=== PATIENT | female | born 1965 | race Caucasian/White ===

== ENCOUNTER 2018-04-21 07:27 | Emergency (ER) ==
[2018-04-21 07:39] VITALS: TEMP 97.2; BMI 31.6
[2018-04-21] MEDS ORDERED: TORADOL IM STA (07:46)
--- NOTE | 2018-04-21 08:47 | CT ---
EXAM: CT Abdomen without contrast. CT Pelvis without contrast. HISTORY: Left flank pain. Left groin pain. Hematuria. COMPARISON: None available. TECHNIQUE: Multiple axial images of the abdomen and pelvis were obtained without intravenous contras t. Images were reformatted in the sagittal and coronal plane. FINDINGS: Please note that evaluation of the abdominal and pelvic structures is limited due to lack of intravenous contrast. Probable right middle lobe and lingular scarring with additional subsegmental atelectasis in the righ t lower lobe. Degenerative changes present throughout the spine. The liver is mildly enlarged but normal contour. Gallbladder is contracted. The pancreas, spleen, a nd adrenal glands demonstrate normal contour. Right kidney appears normal. Mild left renal pelviectasis and ureterectasis noted with suspected pun ctate proximal left ureteral calculus on axial image 78 and coronal image 54 of the L4-5 level. No m ore distal left ureteral calculi are seen. No bladder calculi identified. Bladder appears normal. Uterus is absent. The bowel is normal in course and caliber without evidence for obstruction or inflammatory process. The appendix is normal. No free fluid or free air identified. Nonspecific nonenlarged lymph nodes a re present mesenteric, retroperitoneal, iliac chains and inguinal regions. Atherosclerotic calcifica tions are present with relatively small caliber of the distal infrarenal abdominal aorta just above t he bifurcation measuring approximately 1.4 cm transverse by 1.2 cm AP. IMPRESSION: 1. Mild left hydronephrosis secondary to a punctate obstructing calculus in the proximal left ureter located at the L4-5 level. 2. Hepatomegaly. 3. Atherosclerosis.
--- NOTE | 2018-04-21 09:41 | ED.PDOC ---
General ED Provider: Dr. KIM GUZMAN Chief Complaint: Kidney Stone Stated Complaint: left flank /LLQ PAIN Time Seen by Physician: 07:30 (SEEN WITH NURSE AT ALL TIME HAS HISTORY OF RENAL STONES WITH THE SAME PATTERN PAIN) Mode of Arrival: Walk-In Information Source: Patient Exam Limitations: No limitations Primary Care Provider: MIAN COMER Nursing and Triage Documentation Reviewed and Agree: Yes Does patient meet sepsis criteria?: No System Inflammatory Response Syndrome: Not Applicable Sepsis Protocol: For patient's 13 years and over: Temp is 96.8 and below OR 101 and greater Pulse >90 BPM Resp >20/minute Acutely Altered Mental Status Are patient's symptoms suggestive of a new infection, such as: -Pneumonia -Skin, Soft Tissue -Endocarditis -UTI -Bone, Joint Infection -Implantable Device -Acute Abdominal Infection -Wound Infection -Meningitis -Blood Stream Catheter Infection -Unknown GI Complaint Exam - Abdominal Pain Complaint/Exam Onset: Gradual Duration: TODAY Symptoms Are: Still present Timing: Constant Initial Severity: Moderate Location of Pain: LLQ Radiates To: Reports: Flank (LEFT HAS GROSS HEMATURIA) Alleviating: Reports: None Associated Signs and Symptoms: Reports: Back pain (LEFT FLANK), Dysuria. Denies : Diaphoresis, Fever, Cough, Chest pain, Dizziness, Constipation, Blood in stool , Urinary frequency, Decreased urine output, Decreased appetite, Vaginal bleeding, Vaginal discharge, Nausea, Vomiting, Diarrhea, Sore throat, Decreased activity Related History: Reports: Similar episode (RENAL STONE PT NEVER SEEKED UROLOGY INPUT REGARDING PAST STONES AND SHE SAID SHE PASSED THEM) Review of Systems - Review Of Systems Constitutional: Reports: No symptoms Eyes: Reports: No symptoms Ears, Nose, Mouth, Throat: Reports: No symptoms Respiratory: Reports: No symptoms Cardiac: Reports: No symptoms GI: Reports: Abdominal pain (LLQ) : Reports: No symptoms Musculoskeletal: Reports: Back pain (left flank) Skin: Reports: No symptoms Neurological: Reports: No symptoms Endocrine: Reports: No symptoms Hematologic/Lymphatic: Reports: No symptoms All Other Systems: Reviewed and Negative Past Medical History - Past Medical History Previously Healthy: Yes Endocrine: Reports: None Cardiovascular: Reports: Hypertension Respiratory: Reports: None Hematological: Reports: None Gastrointestinal: Reports: None Genitourinary: Reports: None Neuro/Psych: Reports: Anxiety Musculoskeletal: Reports: None Cancer: Reports: None Last Menstrual Period: hysterectomy - Surgical History General Surgical History: Reports: None - Family History Family History: Reports: None - Social History Smoking Status: Current every day smoker, Heavy tobacco smoker Hx Substance Use: No Alcohol Screening: None Physical Exam - Physical Exam Appearance: Well-appearing, No pain distress, Well-nourished Eyes: QIAN, EOMI, Conjunctiva clear ENT: Ears normal, Nose normal, Oropharynx normal Respiratory: Airway patent, Breath sounds clear, Breath sounds equal, Respirations nonlabored Cardiovascular: RRR, Pulses normal, No rub, No murmur GI/: Soft, Nontender, No masses, Bowel sounds normal, No Organomegaly Musculoskeletal: Normal strength, ROM intact, No edema, No calf tenderness Skin: Warm, Dry, Normal color Neurological: Sensation intact, Motor intact, Reflexes intact, Cranial nerves intact, Alert, Oriented Psychiatric: Affect appropriate, Mood appropriate Interpretation - Radiology Interpretation Radiology Interpretation By: Radiologist Radiology Results: Positive (4MM STONE) Physician Notification - Case Discussed Physician Notified: momo tay Time of Notification: 10:26 (will see on [email or web address] instructed that place pt on pain meds and flomax ) Critical Care Note - Critical Care Note Total Time (mins): 0 Course - Course Hematology/Chemistry: 04/21/18 07:55 04/21/18 07:55 Orders, Labs, Meds: Lab Review 04/21/18 04/21/18 04/21/18 07:50 07:55 07:55 WBC 7.04 RBC 4.39 Hgb 12.0 Hct 37.9 MCV 86.3 MCH 27.3 MCHC 31.7 L RDW Coeff of [place] 13.7 Plt Count 256 Immature Gran % (Auto) 0.4 Neut % (Auto) 60.2 Lymph % (Auto) 32.7 [place] % (Auto) 4.7 Eos % (Auto) 1.4 Baso % (Auto) 0.6 Immature Gran # (Auto) 0.0 Neut # (Auto) 4.2 Lymph # (Auto) 2.3 [place] # (Auto) 0.3 L Eos # (Auto) 0.1 Baso # (Auto) 0.0 PT INR APTT Sodium 138.0 Potassium 4.35 Chloride 103.4 Carbon Dioxide 26.0 Anion Gap 12.95 BUN 12.1 Creatinine 0.60 Estimated GFR (MDRD) 104.00 BUN/Creatinine Ratio 20.16 Glucose 137.5 H Calcium 9.13 Total Bilirubin 0.19 L AST 26.7 ALT 25.9 Alkaline Phosphatase 93.7 Total Protein 8.06 Albumin 4.62 Globulin 3.44 Albumin/Globulin Ratio 1.34 Urine Color Yellow Urine Clarity Turbid Urine pH 6.5 Ur Specific [place] 1.025 Urine Protein 2+ Urine Glucose (UA) Negative Urine Ketones Trace Urine Blood 3+ Urine Nitrite Negative Urine Bilirubin 1+ Urine Urobilinogen 0.2 Ur Leukocyte Esterase Negative Urine Microscopic RBC Tntc Ur Squamous Epith Cells Not present 04/21/18 07:55 WBC RBC Hgb Hct MCV MCH MCHC RDW Coeff of [place] Plt Count Immature Gran % (Auto) Neut % (Auto) Lymph % (Auto) [place] % (Auto) Eos % (Auto) Baso % (Auto) Immature Gran # (Auto) Neut # (Auto) Lymph # (Auto) [place] # (Auto) Eos # (Auto) Baso # (Auto) PT 9.7 INR 0.97 APTT 27.7 Sodium Potassium Chloride Carbon Dioxide Anion Gap BUN Creatinine Estimated GFR (MDRD) BUN/Creatinine Ratio Glucose Calcium Total Bilirubin AST ALT Alkaline Phosphatase Total Protein Albumin Globulin Albumin/Globulin Ratio Urine Color Urine Clarity Urine pH Ur Specific [place] Urine Protein Urine Glucose (UA) Urine Ketones Urine Blood Urine Nitrite Urine Bilirubin Urine Urobilinogen Ur Leukocyte Esterase Urine Microscopic RBC Ur Squamous Epith Cells Orders Category Date Time Status CBC W/ AUTO DIFF Stat LAB 04/21/18 07:55 Completed COMPREHENSIVE METABOLIC PANEL Stat LAB 04/21/18 07:55 Completed PARTIAL THROMBOPLASTIN TIME Stat LAB 04/21/18 07:55 Completed PT WITH INR Stat LAB 04/21/18 07:55 Completed URINALYSIS C & S IF INDICATED Stat LAB 04/21/18 07:50 Completed Ketorolac Tromethamine [Toradol] MEDS 04/21/18 07:46 Discontinued 60 mg IM ONCE STA CT ABD/PEL WO RENAL STONE PROT Stat RADS 04/21/18 07:45 Completed Medications Discontinued Medications Generic Name Dose Route Start Last Admin Trade Name Freq PRN Reason Stop Dose Admin Ketorolac Tromethamine 60 mg 04/21/18 07:46 04/21/18 07:57 Toradol IM 04/21/18 07:47 60 mg ONCE STA Administration Vital Signs: Temp Pulse Resp BP Pulse Ox 04/21/18 10:01 90 16 141/74 H 95 04/21/18 09:00 128/92 H 04/21/18 07:28 97.2 F L 125 H 20 173/99 H 96 Departure - Departure Time of Disposition: 10:27 Disposition: HOME SELF-CARE Discharge Problem: Kidney stone Instructions: Kidney Stones (ED), Renal Colic (ED), How to Strain Your Urine ( ED), Flank Pain (ED) Condition: Good Pt referred to PMD for follow-up: Yes IPMP verified?: No Additional Instructions: Please call your Family Physician as soon as possible to schedule a follow-up appointment. Allergies/Adverse Reactions: Allergies amoxicillin [From Augmentin] Adverse Reaction (Verified 04/21/18 07:33) ceftriaxone [From Rocephin] Adverse Reaction (Verified 04/21/18 07:33) clavulanic acid [From Augmentin] Adverse Reaction (Verified 04/21/18 07:33) meperidine [From Demerol] Adverse Reaction (Verified 04/21/18 07:33) prochlorperazine [From Compazine] Adverse Reaction (Verified 04/21/18 07:33) Home Medications: Ambulatory Orders Cyclobenzaprine HCl [Flexeril] 10 mg PO DIRECTED PRN 04/21/18 Diazepam [Valium] 10 mg PO BID PRN 04/21/18 Duloxetine HCl [Cymbalta] 30 mg PO DAILY 04/21/18 Hydrocodone Bit/Acetaminophen [Lortab 5-500] 1 tab PO QID PRN 04/21/18 Losartan Potassium [Cozaar] 50 mg PO DAILY 04/21/18 Disposition Discussed With: Patient
[2018-04-21 10:02] VITALS: BP 141/74
== END 2018-04-21 10:50 | disposition home or self-care (01) ==
LOC: ED 07:27
DX: N20.0 Calculus of kidney (principal); Z87.442 Personal history of urinary calculi; F17.210 Nicotine dependence, cigarettes, uncomplicated; I10 Essential (primary) hypertension
CPT/HCPCS: 36415; 74176; 80053; 81001; 85025; 85610; 85730; 96372; 99283